=== PATIENT | male | born 1970 | race Caucasian/White ===

== ENCOUNTER 2019-04-21 23:24 | Emergency (ER) | payer SELFPAY ==
[~2019-04-21] VITALS: Ht 175.3 cm; Wt 72.7 kg
[2019-04-21 23:26] VITALS: BP 130/79
== END 2019-04-22 01:45 | disposition left against medical advice (07) ==
LOC: ER 23:24
DX: M79.672 Pain in left foot (principal); Z53.21 Procedure and treatment not carried out due to patient leaving prior to being seen by health care provider